=== PATIENT | female | born 1995 ===

== ENCOUNTER 2018-07-13 22:27 | Emergency (ER) | payer OTHER ==
[2018-07-13 22:37] VITALS: BMI 20.7
[2018-07-13 22:40] VITALS: BP 117/78; PULSE 85; RESP 18; TEMP 99; O2SAT 99
--- NOTE | 2018-07-13 23:19 | ED PDOC ---
HPI: Skin/Bite Injury Time Seen by Provider: 07/13/18 22:46 Chief Complaint (Nursing): Abnormal Skin Integrity Chief Complaint (Provider): Rash History Per: Patient History/Exam Limitations: no limitations Onset/Duration Of Symptoms: Days (x7 days) Current Symptoms Are (Timing): Still Present Quality Of Symptoms: Itching (intermittently) Additional Complaint(s): Patient is a 22 year old female who presents to ED for evaluation of a red, raised rash to her torso, neck and upper extremities ongoing for the past week - since Saturday. Patient reports she was seen at an urgent care and prescribed a Medrol Dose Hay for a possible allergic reaction. Patient states no improvement since starting the medication. Patient has also been applying calamine lotion at home. Patient states the rash is seldom itchy and never painful. Patient reports sick contact in niece. Patient denies any recent travel, fever/chills, N/V/D, cough/SOB, facial swelling, new exposures, abdominal pain, chest pain. No history of allergic reaction or known allergens. PMD: unknown LMP: 07/07/18 Past Medical History Reviewed: Historical Data, Nursing Documentation, Vital Signs Vital Signs: Last Vital Signs Temp 99.0 F 07/13/18 22:37 Pulse 85 07/13/18 22:37 Resp 18 07/13/18 22:37 BP 117/78 07/13/18 22:37 Pulse Ox 99 07/13/18 22:37 - Medical History PMH: No Chronic Diseases - Surgical History Surgical History: No Surg Hx - Family History Family History: States: Unknown Family Hx - Living Arrangements Living Arrangements: With Family - Allergies Allergies/Adverse Reactions: Allergies Allergy/AdvReac Type Severity Reaction Status Date / Time No Known Allergies Allergy Verified 07/13/18 22:37 Review of Systems ROS Statement: Except As Marked, All Systems Reviewed And Found Negative Constitutional: Negative for: Fever Cardiovascular: Negative for: Chest Pain Respiratory: Negative for: Cough, Shortness of Breath Gastrointestinal: Negative for: Vomiting, Abdominal Pain Skin: Positive for: Rash Physical Exam - Reviewed Nursing Documentation Reviewed: Yes Vital Signs Reviewed: Yes - Physical Exam Comments: GENERALIZED APPEARANCE: Patient is AAOx3, in no acute distress. Resting comfortably. SKIN: Warm, dry; (-) cyanosis. Rash: (+) erythematous, scattered raised maculopapules present to torso, neck, and bilateral upper extremities. (-) petechiae. No evidence of suppurativeinfection (-) discharge (-) crusting (-) hives ENMT: Pharynx: clear, uvula midline (+) erythema (-) exudate.(-) mucous membrane involvement. Airway patent: (-) stridor, (-) hoarseness. CHEST AND RESPIRATORY: (-) rales, (-) rhonchi, (-) wheezes; breath sounds equalbilaterally. Respirations even and nonlabored. NECK: Supple, FROM(-) tenderness, (-) stiffness. HEART AND CARDIOVASCULAR: (-) irregularity ABDOMEN: Not distended. Bowel sounds present x4. (-) abdominal tenderness; (- ) CVAtenderness; (-) guarding, (-) rebound, (-) mass EXTREMITIES: (-) deformity; (-) edema; distal pulses present. NEURO AND PSYCH: Mental status as above; (-) focal findings. Gait: steady. Speech: clear. (-) facial asymmetry - ECG O2 Sat by Pulse Oximetry: 99 (RA) Pulse Ox Interpretation: Normal Medical Decision Making Medical Decision Makin Initial Impression: Rash, probable contact dermatitis Plan: -Rapid Strep -Throat Culture -Re-evaluation 29 Rapid Strep: negative On re-evaluation, patient reports improvement of symptoms. On exam, patient remains AAOx3, in no acute distress. Vitals stable. Lab/Diagnostic results d/w the patient in great detail. Diagnosis of rash, likely contact dermatitis d/w the patient. Based on history, exam and diagnostic results, plan will be for outpatient follow up with PMD. Patient instructed to follow-up with pmd / referral provided / the clinic in 1- 2 days without fail. Advised to take medication as prescribed. Return to the emergency room at any time for any new or worsening symptoms. Patient states she fully agrees with and understands discharge instructions. States that she agrees with the plan and disposition. Verbalized and repeated discharge instructions and plan. I have given the patient opportunity to ask any additional questions. Disposition - Clinical Impression Clinical Impression: Rash and nonspecific skin eruption, Contact dermatitis - Patient ED Disposition Is Patient to be Admitted: No Counseled Patient/Family Regarding: Studies Performed, Diagnosis, Need For Followup - Disposition Referrals: primary, doctor [Other] Disposition: Routine/Home Disposition Time: 00:30 Condition: STABLE Additional Instructions: OBTAIN A DERMATOLOGY REFERRAL FROM PMD. USE BENADRYL NEEDED FOR ITCHING. CONTINUE USE OF MEDROL DOSE PACK AND CALAMINE LOTION. The emergency medical care you received today was directed at your acute symptoms. If you were prescribed any medication, please fill it and take as directed. It may take several days for your symptoms to resolve. Return to the Emergency Department if your symptoms worsen, do not improve, or if you have any other problems. Please contact your doctor in 2 days for re-evaluation and follow up / or call one of the physicians/clinics you have been referred to that are listed on the Patient Visit Information form that is included in your discharge packet. Bring any paperwork you were given at discharge with you along with any medications you are taking to your follow up visit. Our treatment cannot replace ongoing medical care by a primary care provider (PCP) outside of the emergency department. Instructions: Contact Dermatitis (DC), Skin Rash Forms: [facility] (Mongolian) Print Language: [place]OT[place] - POA Present On Arrival: None Results - Lab Results Lab Results: 07/14/18 00:13 Grp A Beta Strep Ag Negative
== END 2018-07-14 01:03 | disposition home or self-care (01) ==
LOC: H.ER 22:27
DX: R21 Rash and other nonspecific skin eruption (principal); L25.9 Unspecified contact dermatitis, unspecified cause